=== PATIENT | female | born 1990 | race Two or more races ===

== ENCOUNTER 2018-02-14 21:26 | Emergency (ER) | payer OTHER, SELFPAY ==
[~2018-02-14] VITALS: Ht 188 cm; Wt 68.0 kg
[2018-02-14 21:52] VITALS: BP 115/78
[2018-02-14] MEDS ORDERED: NORG1TAB7 PO (21:56)
== END 2018-02-14 23:11 ==
LOC: ED 22:16
DX: Z20.89 Contact with and (suspected) exposure to other communicable diseases (principal); Z00.01 Encounter for general adult medical examination with abnormal findings
CPT/HCPCS: 36415; 86705; 86706; 86803; 87340; 87806; 99283; G0475

== ENCOUNTER 2019-02-09 17:27 | Emergency (ER) | payer OTHER ==
[~2019-02-09] VITALS: Ht 157.5 cm; Wt 64.0 kg
[~2019-02-09 17:27] MED LIST: NORG1TAB7 PO
[2019-02-09] MEDS ORDERED: LEVO1IUD3 VG (17:46)
[2019-02-09 18:32] VITALS: BP 105/72
== END 2019-02-09 18:50 | disposition home or self-care (01) ==
LOC: ED 18:34
DX: R23.0 Cyanosis (principal)
CPT/HCPCS: 74022; 99283

== ENCOUNTER 2020-03-20 16:34 | Emergency (ER) | payer OTHER ==
[~2020-03-20] VITALS: Ht 157.5 cm; Wt 65.5 kg
[~2020-03-20 16:34] MED LIST changes: +LEVO1IUD3 VG
--- NOTE | 2020-03-20 16:57 | NUR ---
PATIENT WALKED BACK FROM TRIAGE WITH CHIEF C/O LOWER ABD AND LOW BACK PAIN. PATIENT REPORTS BEING SEEN AT URGENT CARE LAST WEEK AND DIAGNOSED WITH UTI, AND GIVEN 3 DAYS OF ABX. PATIENT REPORTS THAT SHE IS STILL HAVING LOWER ABD PAIN THAT RADIATES TO HER LOW BACK, FOUL SMELLING URINE, AND PAIN AFTER URINATING. DENIES FEVER, HAD SOME WHITE CLOUDY DISCHARGE YESTERDAY. NADN, SIGNIFICANT OTHER AT BEDSIDE, CALL LIGHT WITHIN REACH.
--- NOTE | 2020-03-20 16:57 | NUR ---
ER PROVIDER AT BEDSIDE AT BEDSIDE FOR EVALUATION.
--- NOTE | 2020-03-20 17:16 | NUR ---
URINE COLLECTED AND WALKED TO LAB.
[2020-03-20 17:21] LABS: MICROSCOPIC NOT IND
--- NOTE | 2020-03-20 17:59 | NUR ---
ER PROVIDER AT BEDSIDE TO PERFORM PELVIC EXAM.
[2020-03-20 18:25] LABS: HCG UR SG 1.009 (1.003-1.030)
[2020-03-20 18:32] VITALS: BP 96/62
--- NOTE | 2020-03-20 18:32 | NUR ---
PATIENT TO ULTRASOUND.
--- NOTE | 2020-03-20 18:46 | NUR ---
received report, pt in Ultrasound at this time.
[2020-03-20 18:49] LABS: CLUE CELLS NONE SEEN (NONE SEEN); WET PREP WBCS FEW (FEW)
[2020-03-20] MEDS ORDERED: KETOROLAC 30 MG/1 ML ONE (19:25)
[2020-03-20] MEDS ORDERED: KETOROLAC 30 MG/1 ML IM ONE (19:30)
--- NOTE | 2020-03-20 19:51 | NUR ---
pain meds given IM to pt per MD order. tolerated well. waiting for DC instructions to let the pt go.
== END 2020-03-20 20:37 | disposition home or self-care (01) ==
LOC: ED 19:31
DX: N83.291 Other ovarian cyst, right side (principal); M54.5 Low back pain; R10.2 Pelvic and perineal pain
CPT/HCPCS: 74018; 76830; 81003; 81025; 87210; 87491; 87591; 87808; 99285

== ENCOUNTER → 2020-03-26 | Outpatient (CLI) | payer OTHER ==
[~2020-03-26] MED LIST changes: +ALBU90AE INH; +ASCO100019 PO; +ESCI10TA10 PO; +FEXO1TAB29 PO; +L.AC1CAP6 PO; +MULT-658 PO; +MULT-706 PO; +cranberry PO
== END | disposition home or self-care (01) ==
LOC: STAR 11:38
PROVIDERS: ATTEND Obstetrics & Gynecology
DX: Z20.822 Contact with and (suspected) exposure to COVID-19 (principal); T83.32XA Displacement of intrauterine contraceptive device, initial encounter; Y92.89 Other specified places as the place of occurrence of the external cause
CPT/HCPCS: 87635

== ENCOUNTER 2020-04-01 09:22 | Day surgery (SDC) | payer OTHER ==
[~2020-04-01] VITALS: Ht 157.5 cm; Wt 63.9 kg
[2020-04-01 10:24] VITALS: BP 115/80
[2020-04-01] MEDS ORDERED: CHLORHEXIDINE 15 ML UDC MM ONE (10:30)
[2020-04-01] MEDS ORDERED: LACTATED RINGERS 1,000 ML IV SCH (10:30)
[2020-04-01 10:40] LABS: HCG UR SG 1.019 (1.003-1.030)
[2020-04-01] MEDS ORDERED: BUPIVACAINE/PF 0.25% ONE (11:18)
[2020-04-01] MEDS ORDERED: SILVER NITRATE STICK TP ONE (11:18)
[2020-04-01] MEDS ORDERED: MIDAZOLAM 1 MG/ML, 2ML ONE (11:35)
[2020-04-01] MEDS ORDERED: FENTANYL PF 100 MCG/2ML ONE (11:36)
[2020-04-01] MEDS ORDERED: DEXAMETHASONE 4 MG/ML, 1ML ONE (12:01)
[2020-04-01] MEDS ORDERED: ONDANSETRON 2MG/ML, 2ML ONE (12:01)
[2020-04-01] MEDS ORDERED: CEFAZOLIN 1,000 MG ONE (12:01)
[2020-04-01] MEDS ORDERED: PROPOFOL 10 MG/ML, 20ML ONE (12:01)
[2020-04-01] MEDS ORDERED: IBUP-1223 PO (12:08)
[2020-04-01] MEDS ORDERED: OXYC1TAB14 PO (12:08)
[2020-04-01] MEDS ORDERED: LORazepam 2 MG/ML, 1ML IVPush PRN (12:30)
[2020-04-01] MEDS ORDERED: OXYcodone 5 MG/5 ML ORAL.SOL UDC PO PRN (12:30)
[2020-04-01] MEDS ORDERED: HYDROmorphone 1 MG/ML, 1ML INJ IVPush PRN (12:30)
[2020-04-01] MEDS ORDERED: ACETAMINOPHEN 325 MG TABLET PO PRN (12:30)
[2020-04-01] MEDS ORDERED: ONDANSETRON 2MG/ML, 2ML IVPush PRN (12:30)
[2020-04-01] MEDS ORDERED: PROMETHAZINE 25 MG/ML, 1ML IVPush PRN (12:30)
[2020-04-01] MEDS ORDERED: METHOCARBAMOL 1,000 MG in DEXTROSE 5% 100 ML IV PRN (12:30)
[2020-04-01] MEDS ORDERED: PROMETHAZINE 25 MG SUPP PR PRN (12:30)
[2020-04-01] MEDS ORDERED: FENTANYL PF 100 MCG/2ML IV PRN (12:30)
[2020-04-01] MEDS ORDERED: ACETAMINOPHEN 650 MG/20.3 ML UDC ONE (12:44)
== END 2020-04-01 14:00 | disposition home or self-care (01) ==
LOC: OUT 09:22
PROVIDERS: ATTEND Obstetrics & Gynecology
DX: T83.32XA Displacement of intrauterine contraceptive device, initial encounter (principal); F41.9 Anxiety disorder, unspecified; J45.909 Unspecified asthma, uncomplicated; Z79.899 Other long term (current) drug therapy; Z98.890 Other specified postprocedural states; Z82.5 Family history of asthma and other chronic lower respiratory diseases; Y83.8 Other surgical procedures as the cause of abnormal reaction of the patient, or of later complication, without mention of misadventure at the time of the procedure; Y92.89 Other specified places as the place of occurrence of the external cause
CPT/HCPCS: 58562; 81025; J0690; J1100; J2250; J2405; J2704; J3010; J7120